=== PATIENT | male | born 1995 | race Caucasian/White ===

== ENCOUNTER 2019-03-05 15:55 | Emergency (ER) | payer OTHER, SELFPAY ==
[2019-03-05 15:55] VITALS: BP 128/81; RESP 16; TEMP 37.1; BMI 33.2
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
[2019-03-05 17:34] LABS: Bacteria 0 SEEN /hpf (None Seen); Mucous, Urine 0 SEEN /hpf (<or=2+)
[2019-03-05] MEDS: Ketorolac 60 MG/2 ML Vial IM (17:35)
[2019-03-05 17:41] LABS: Color, Urine Yellow (Yellow); Glucose, Dipstick Normal (Normal); Ketone-Dipstick Negative (Negative); Leukocyte Esterase-Dipstick 25 /ul (Negative); Nitrite-Dipstick Negative (Negative); Occult Blood-Urine Negative /ul (Negative); Protein-Dipstick 15 mg/dl (Negative); Specific Gravity, Urine 1.015 (1.002-1.030); Urine Bilirubin Dipstick Negative (Negative); Urine Clarity Sl. Cloudy (Clear); Urine Urobilinogen 1 mg/dl (Normal)
[2019-03-05 17:53] LABS: Red Blood Cells-Urine 0-5 SEEN /hpf (0-5); Squamous Epithelial Cells - UA 0-5 SEEN /hpf (0-5); White Blood Cells 0-5 SEEN /hpf (0-5)
== END 2019-03-05 18:51 | disposition home or self-care (01) ==
PROVIDERS: Emergency Provider Emergency Medicine; Family Provider Family Medicine; PCP Family Medicine
DX: S20.222A Contusion of left back wall of thorax, initial encounter (principal); V43.52XA Car driver injured in collision with other type car in traffic accident, initial encounter; Y93.89 Activity, other specified; Y92.414 Local residential or business street as the place of occurrence of the external cause
CPT/HCPCS: 81001; 96372; 99284

== ENCOUNTER → 2019-05-11 16:48 | Outpatient (CLI) | payer OTHER, SELFPAY ==
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
== END ==
PROVIDERS: PCP Family Medicine; Referring Provider Family Medicine; Visit Provider Family Medicine
DX: M54.5 Low back pain (principal)
CPT/HCPCS: 72110

== ENCOUNTER 2019-10-06 22:04 | Emergency (ER) | payer OTHER, SELFPAY ==
[2019-10-06 22:05] VITALS: BP 132/84; PULSE 95; RESP 18; TEMP 35.8; O2SAT 96; BMI 32.9
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
[2019-10-06] MEDS: Ondansetron 4 MG/2 ML Vial IV (22:28)
[2019-10-06] MEDS: 0.9% Normal Saline 1,000 ML 150 ML IV (22:28)
[2019-10-06 22:35] LABS: Absolute Lymphocyte Count 1.63 X10^3/uL (0.83-4.51); Absolute Neutrophil Count 9.1 X10^3/uL (2.0-7.7); Basophil# 0.04 X10^3/uL; Basophil% 0.3 % (0-1); Eosinophil# 0.11 X10^3/uL; Hematocrit 45.5 % (40-54); Hemoglobin 15.1 g/dL (13.0-16.5); Lymphocyte # 1.63 X10^3/ul (4.0); Lymphocyte % 14.2 % (19-41); Mean Corp Hgb Conc 33.2 g/dL (32-36); Mean Corpuscular Hgb 31.1 pg (27.0-32.0); Mean Corpuscular Volume 93.8 fL (80-94); Mean Platelet Vol. 9.4 fl (6.2-12.0); Monocyte# 0.56 X10^3/uL; Monocyte% 4.9 % (0-10); NRBC Flagged by Analyzer 0 % (0-5); Neutrophil # 9.08 X10^3/uL (2.7-7.7); Neutrophil % 79.2 % (47-70); Platelet Count 253 K/mm3 (150-450); RBC Distribution Width CV 11.9 % (11.6-14.6); RBC Distribution Width SD 40.7 fl (35.1-43.9); Red Blood Count 4.85 M/mm3 (4.6-6.2); White Blood Count 11.5 K/mm3 (4.4-11.0)
[2019-10-06 22:48] LABS: Anion Gap 9 (5-15); BUN 17 mg/dL (7-18); BUN/Creat Ratio 17.3 RATIO (10-20); Calcium,Total 8.7 mg/dL (8.5-10.1); Chloride 106 mmol/L (98-107); Creatinine, Serum 0.98 mg/dL (0.70-1.30); EST Glomerular Filtration Rate 101 mL/min (>60); Est Glom Filt Rate - Afr Amer 123 mL/min (>60); Estimated Creatinine Clearance 115.36 ml/min; Glucose 111 mg/dL (74-106); Potassium 3.7 mmol/L (3.5-5.1); Sodium Level 141 mmol/L (136-145)
[2019-10-07 00:23] VITALS: BP 106/42; PULSE 73; RESP 15; O2SAT 96
[2019-10-07 01:03] VITALS: BP 117/50; PULSE 86; RESP 14; O2SAT 94
[2019-10-07 03:30] VITALS: BP 122/67; PULSE 79; RESP 18; O2SAT 96
== END 2019-10-07 03:38 | disposition home or self-care (01) ==
PROVIDERS: Emergency Provider Emergency Medicine; PCP Family Medicine
DX: F10.129 Alcohol abuse with intoxication, unspecified (principal); Y90.9 Presence of alcohol in blood, level not specified
CPT/HCPCS: 80048; 80320; 85025; 96361; 96374; 99284; J7030; A4216; G0480; J2405

== ENCOUNTER → 2021-03-19 | Outpatient (CLI) | payer OTHER, SELFPAY | END | disposition home or self-care (01) | LOC: LABSPEC 15:22 | PROVIDERS: PCP Family Medicine; Visit Provider Family Medicine | DX: R50.9 Fever, unspecified (principal) | CPT/HCPCS: 87633; 87635; U0005; U0003 ==